=== PATIENT | male | born 1970 | race Two or more races ===

== ENCOUNTER 2020-10-23 08:29 | Emergency (ER) | payer OTHER ==
[~2020-10-23] VITALS: Ht 185.4 cm; Wt 120.2 kg
== END 2020-10-23 16:11 | disposition home or self-care (01) ==
LOC: ER 08:29
DX: R10.31 Right lower quadrant pain (principal); Z20.828 Contact with and (suspected) exposure to other viral communicable diseases; K80.50 Calculus of bile duct without cholangitis or cholecystitis without obstruction; M51.26 Other intervertebral disc displacement, lumbar region

== ENCOUNTER 2022-09-08 08:54 | Emergency (ER) | payer OTHER ==
[~2022-09-08] VITALS: Ht 185.4 cm; Wt 113.4 kg
== END 2022-09-08 18:39 | disposition home or self-care (01) ==
LOC: ER 08:54
DX: R30.0 Dysuria (principal)

== ENCOUNTER 2022-11-04 11:52 | Outpatient (CLI) | payer OTHER | END 2022-11-04 12:01 | disposition home or self-care (01) | LOC: RAD 11:52 | DX: M54.50 Low back pain, unspecified (principal); N39.0 Urinary tract infection, site not specified ==

== ENCOUNTER 2022-11-04 13:07 | Outpatient (CLI) | payer OTHER | END 2022-11-04 13:08 | disposition home or self-care (01) | LOC: LAB 13:07 | DX: M54.50 Low back pain, unspecified (principal); N39.0 Urinary tract infection, site not specified; Z12.5 Encounter for screening for malignant neoplasm of prostate ==

== ENCOUNTER 2022-11-06 12:31 | Outpatient (CLI) | payer OTHER | END 2022-11-06 12:48 | disposition home or self-care (01) | LOC: RAD 12:31 | DX: M54.59 Other low back pain (principal); R07.9 Chest pain, unspecified | CPT/HCPCS: 72148 ==

== ENCOUNTER → 2022-11-24 10:31 | Outpatient (CLI) | payer OTHER | END | disposition home or self-care (01) | LOC: LAB 10:31 | PROVIDERS: ATTEND General Practice | DX: D50.0 Iron deficiency anemia secondary to blood loss (chronic) (principal); E78.00 Pure hypercholesterolemia, unspecified; N39.0 Urinary tract infection, site not specified; R82.90 Unspecified abnormal findings in urine; E55.9 Vitamin D deficiency, unspecified; E11.65 Type 2 diabetes mellitus with hyperglycemia; R82.998 Other abnormal findings in urine; N52.9 Male erectile dysfunction, unspecified; Z13.89 Encounter for screening for other disorder; I25.2 Old myocardial infarction ==

== ENCOUNTER 2022-11-27 09:53 | Outpatient (CLI) | payer OTHER | END 2022-11-27 14:59 | disposition home or self-care (01) | LOC: LAB 09:53 | PROVIDERS: ATTEND General Practice | DX: D50.0 Iron deficiency anemia secondary to blood loss (chronic) (principal); E78.00 Pure hypercholesterolemia, unspecified; N39.0 Urinary tract infection, site not specified; R82.90 Unspecified abnormal findings in urine; E55.9 Vitamin D deficiency, unspecified; E11.65 Type 2 diabetes mellitus with hyperglycemia; R82.998 Other abnormal findings in urine; N52.9 Male erectile dysfunction, unspecified; Z13.89 Encounter for screening for other disorder; I25.2 Old myocardial infarction ==

== ENCOUNTER 2023-01-01 08:50 | Outpatient (CLI) | payer OTHER | END 2023-01-01 08:51 | disposition home or self-care (01) | LOC: LAB 08:50 | PROVIDERS: ATTEND General Practice | DX: E11.65 Type 2 diabetes mellitus with hyperglycemia (principal); Z13.1 Encounter for screening for diabetes mellitus ==

== ENCOUNTER 2023-04-08 10:40 | Outpatient (CLI) | payer OTHER | END 2023-04-08 10:41 | disposition home or self-care (01) | LOC: LAB 10:40 | PROVIDERS: ATTEND General Practice | DX: E78.2 Mixed hyperlipidemia (principal); D64.9 Anemia, unspecified; E11.9 Type 2 diabetes mellitus without complications; E29.1 Testicular hypofunction ==

== ENCOUNTER 2023-04-23 08:24 | Outpatient (CLI) | payer OTHER | END 2023-04-23 08:32 | disposition home or self-care (01) | LOC: SONOGRAMA 08:24 | PROVIDERS: ATTEND General Practice | DX: R74.01 Elevation of levels of liver transaminase levels (principal); R80.9 Proteinuria, unspecified ==

== ENCOUNTER 2023-10-13 10:36 | Outpatient (CLI) | payer OTHER ==
[2023-10-13 11:54] LABS: HEMATOCRIT 54.4 % (39.0-48.0); HEMOGLOBIN 18.9 g/dL (13-16.00); MEAN CELL VOLUME 88.7 fL (80.0-100.00); MEAN CORPUSCULAR HEMOGLOBIN 30.9 pg (27.00-32.0); MEAN CORPUSCULAR HGB CONC 34.8 g/dl (32.0-36.0); PLATELET COUNT 145 K/uL (150-450); RED BLOOD COUNT 6.13 M/uL (4.00-6.00); RED CELL DISTRIBUTION WIDTH 15.7 % (11.5-14.5)
[2023-10-13 12:43] LABS: ALBUMIN 4.2 gm/dL (3.4-5.0); BILIRUBIN TOTAL 1.65 mg/dL (0.3-1.2); CALCIUM 9.3 mg/dL (8.5-10.1); CHOL HDL RATIO 4.3 (0-5.0); CREATININE SERUM 1.51 mg/dL (0.70-1.30); GFR 48.96; GLOBULINA 3.7 G/DL (2.4-3.5); POTASSIUM 4.37 mEq/L (3.5-5.1); TOTAL PROTEIN 7.9 gm/dL (6.4-8.2)
[2023-10-15 06:06] LABS: hav igm Negative (Negative); hcv Non Reactive (Non Reactive); hep b c Negative (Negative)
[2023-10-15 14:07] LABS: HSV I IGG TYPE SPECIFIC < 0.91 index (0.00-0.90)
[2023-10-15 22:06] LABS: chla t Negative (Negative); neiss Negative (Negative)
== END 2023-10-13 10:37 | disposition home or self-care (01) ==
LOC: LAB 10:36
PROVIDERS: ATTEND General Practice
DX: E78.2 Mixed hyperlipidemia (principal); D64.9 Anemia, unspecified; E11.9 Type 2 diabetes mellitus without complications; A64 Unspecified sexually transmitted disease

== ENCOUNTER → 2024-05-16 10:35 | Outpatient (CLI) | payer OTHER ==
[2024-05-16 11:17] LABS: HEMATOCRIT 52.8 % (39.0-48.0); HEMOGLOBIN 18.2 g/dL (13-16.00); MEAN CELL VOLUME 89.5 fL (80.0-100.00); MEAN CORPUSCULAR HEMOGLOBIN 30.8 pg (27.00-32.0); MEAN CORPUSCULAR HGB CONC 34.4 g/dl (32.0-36.0); PLATELET COUNT 153 K/uL (150-450); RED BLOOD COUNT 5.89 M/uL (4.00-6.00); RED CELL DISTRIBUTION WIDTH 14.2 % (11.5-14.5)
[2024-05-16 11:19] LABS: PH,URINE 5.5 (5.0-8.0); URINE APPEARANCE Clear; URINE BILIRRUBIN Negative (NEGATIVE); URINE BLOOD Negative; URINE COLOR Yellow; URINE GLUCOSE Negative (NEGATIVE); URINE KETONE Negative (NEGATIVE); URINE LEUKOCYTE Negative; URINE NITRATE Negative; URINE PROTEIN Negative (NEGATIVE); URINE UROBILINOGEN 0.2 E.U./dl
[2024-05-16 11:23] LABS: URINE BACTERIA 347.6 uL (0.0-1933); URINE WBC 2.7 uL (0.0-23.2)
[2024-05-16 11:33] LABS: URINE RBC 1.6 uL (0.0-20.8)
[2024-05-16 12:17] LABS: ALBUMIN 4.1 gm/dL (3.4-5.0); BILIRUBIN TOTAL 1.25 mg/dL (0.3-1.2); CALCIUM 9.2 mg/dL (8.5-10.1); CREATININE SERUM 1.61 mg/dL (0.70-1.30); GFR 45.29; GLOBULINA 3.8 G/DL (2.4-3.5); POTASSIUM 4.89 mEq/L (3.5-5.1); PROSTATIC SPECIFIC ANTIGEN 0.934 NG/ML (0.010-4.00); TOTAL PROTEIN 7.9 gm/dL (6.4-8.2); TSH 1.39 uIU/mL (0.358-3.74)
[2024-05-18 09:13] LABS: free psa 0.36 ng/mL; total psa 0.8 ng/mL (0.0-4.0)
== END | disposition home or self-care (01) ==
LOC: LAB 10:35
PROVIDERS: ATTEND General Practice
DX: E11.9 Type 2 diabetes mellitus without complications (principal); N40.0 Benign prostatic hyperplasia without lower urinary tract symptoms; E78.2 Mixed hyperlipidemia; N39.0 Urinary tract infection, site not specified; D64.9 Anemia, unspecified; E03.9 Hypothyroidism, unspecified; E55.9 Vitamin D deficiency, unspecified; Z12.11 Encounter for screening for malignant neoplasm of colon; E29.1 Testicular hypofunction

== ENCOUNTER 2024-08-11 08:33 | Emergency (ER) | payer OTHER ==
[~2024-08-11] VITALS: Ht 185.4 cm; Wt 122.5 kg
[2024-08-11] MEDS ORDERED: DEPO-TESTO100 MG/1 M IM (08:52)
[2024-08-11 09:54] LABS: HEMATOCRIT 53.5 % (39.0-48.0); HEMOGLOBIN 18.6 g/dL (13-16.00); MEAN CELL VOLUME 90.3 fL (80.0-100.00); MEAN CORPUSCULAR HEMOGLOBIN 31.4 pg (27.00-32.0); MEAN CORPUSCULAR HGB CONC 34.8 g/dl (32.0-36.0); PLATELET COUNT 163 K/uL (150-450); RED BLOOD COUNT 5.92 M/uL (4.00-6.00); RED CELL DISTRIBUTION WIDTH 14.2 % (11.5-14.5)
[2024-08-11 10:09] LABS: INR 1.1; PARTIAL THROMBOPLASTIN TIME 27.5 SECONDS (22.0-34.0); PROTHROMBIN TIME 11.9 SECONDS (9.0-11.5)
[2024-08-11 10:22] LABS: ALBUMIN 3.9 gm/dL (3.4-5.0); BILIRUBIN TOTAL 1.29 mg/dL (0.3-1.2); CALCIUM 9.4 mg/dL (8.5-10.1); CREATININE SERUM 1.46 mg/dL (0.70-1.30); GFR 50.7; POTASSIUM 4.77 mEq/L (3.5-5.1); TOTAL PROTEIN 7.9 gm/dL (6.4-8.2)
[2024-08-11 10:36] LABS: PH,URINE 5.5 (5.0-8.0); URINE APPEARANCE Clear; URINE BILIRRUBIN Negative (NEGATIVE); URINE BLOOD Negative; URINE COLOR Yellow; URINE GLUCOSE Negative (NEGATIVE); URINE KETONE Negative (NEGATIVE); URINE LEUKOCYTE Negative; URINE NITRATE Negative; URINE PROTEIN Negative (NEGATIVE); URINE UROBILINOGEN 0.2 E.U./dl
[2024-08-11 10:41] LABS: URINE BACTERIA 75.6 uL (0.0-1933); URINE WBC 2.2 uL (0.0-23.2)
[2024-08-11 10:46] LABS: URINE CAST 0.15 uL (0.0-1.40); URINE EPITHELIAL CELLS 1.2 uL (0.0-38.8); URINE RBC 1.3 uL (0.0-20.8)
[2024-08-11 10:56] LABS: ABG PH 7.388 (7.35-7.45); ABG pCO2 42.9 mmHg (35-45); BASE EXCESS 0.1 mmol/l; BICARBONATE 25.3 mmol/l (23-25); Tco2 26.6 mmol/l
[2024-08-11 12:15] LABS: allen test SATISFACTORY; o2 21 %; puncture site RADIAL LEFT
== END 2024-08-11 17:09 | disposition home or self-care (01) ==
LOC: ER 08:35
PROVIDERS: General Practice
DX: R07.89 Other chest pain (principal)